=== PATIENT | female | born 1975 | race Caucasian/White ===

== ENCOUNTER 2020-05-08 14:05 | Emergency (ER) | payer MEDICARE, SELFPAY ==
[2020-05-08 14:20] VITALS: BP 119/73; PULSE 93; RESP 16; TEMP 36.8; O2SAT 100
--- NOTE | 2020-05-08 14:36 | ED.URI ---
HPI - URI/Sore Throat General Chief Complaint: Upper Respiratory Infection Stated Complaint: Sore Throat/Cough Time Seen by Provider: 05/08/20 14:37 Source: patient Mode of arrival: ambulatory Limitations: no limitations History of Present Illness HPI Narrative: Ashleigh Landaverde is a 45 yo female with no PMH comes to [facility] with complaints of sore throat since Saturday; difficulty swallowing, rates pain as a 6/10. Related Data Home Medications Medication Instructions Recorded Confirmed amitriptyline 50 mg PO HS 05/08/20 05/08/20 buprenorphine HCl [Belbuca] 150 mcg BUCCAL HS 05/08/20 05/08/20 buprenorphine HCl [Belbuca] 300 mcg BUCCAL DAILY 05/08/20 05/08/20 buspirone 5 mg PO DAILY 05/08/20 05/08/20 cholecalciferol (vitamin D3) 2,000 units PO DAILY 05/08/20 05/08/20 cyclobenzaprine 10 mg PO TID PRN 05/08/20 05/08/20 duloxetine 30 mg PO BID 05/08/20 05/08/20 gabapentin 300 mg PO DAILY 05/08/20 05/08/20 modafinil 200 mg PO DAILY 05/08/20 05/08/20 montelukast 10 mg PO HS 05/08/20 05/08/20 potassium chloride 10 meq PO EVERY OTHER DAY 05/08/20 05/08/20 sumatriptan succinate 100 mg PO .PRN 05/08/20 05/08/20 topiramate 100 mg PO TID 05/08/20 05/08/20 trazodone 25 - 50 mg PO HS 05/08/20 05/08/20 Allergies Allergy/AdvReac Type Severity Reaction Status Date / Time benzonatate Allergy Unknown Unknown Verified 05/08/20 14:34 pregabalin Allergy Unknown Unknown Verified 05/08/20 14:34 Review of Systems Review of Systems: Narrative: CONSTITUTIONAL: Denies fever, chills, sweats. EYES: Denies visual changes, redness, discharge. ENT: Denies rhinorrhea, congestion, has sore throat, no otalgia. CARDIOVASCULAR: Denies chest pain, palpitations, edema. RESPIRATORY: Denies dyspnea, wheezing, cough GASTROINTESTINAL: Denies abdominal pain, nausea, vomiting, diarrhea. GENITOURINARY: Denies dysuria, hematuria, abnormal discharge SKIN: Denies rash or itching. NEUROLOGIC: Denies numbness, or focal weakness. PSYCHIATRIC: Denies anxiety or depression. PMFSH Past Medical History Medical History Chronic pain HTN (hypertension) Migraine Family History Family History Other Diabetes mellitus High cholesterol Hypertension Social History Social History (Updated 05/08/20 @ 14:44 by Billie Garcia CNP) Smoking status: Never smoker Alcohol intake: never Comments At time of signature, I agree with nursing past medical, surgical, social and family history. There is no relevant family history pertinent to the presenting complaint. Exam Narrative: Exam Narrative: GENERAL: This is a well-nourished, well-developed patient, in mild distress. HEAD: normocephalic, atraumatic. EYES: Sclera clear/white. Vision is grossly intact. EARS: External ears normal, auditory canals clear and without drainage, TMs normal without perforation. Hearing grossly intact. NOSE: External nose normal without nasal discharge, nares without redness, no rhinorrhea. THROAT: Mucous membranes moist, posterior pharynx erythema, with clear exudate NECK: Neck supple, non-tender CARDIOVASCULAR: Regular rate and rhythm without murmurs, gallops, or rubs. RESPIRATORY: Clear to auscultation. Breath sounds equal bilaterally. No wheezes, rales, or rhonchi. GASTROINTESTINAL: Abdomen soft, non-tender, SKIN: warm, intact with no suspicious lesions or rash, good texture and turgor. NEURO: awake, alert, and oriented to person, place and time. There were no obvious focal neurologic abnormalities. Steady gait EXTREMITIES: Normal range of motion. BACK: Nontender without deformity Course Course Emergency Course: Patient presents with sore throat that started 24 hours ago that is worsened significantly today Strep Test was negative-patient states does not leave the house, does not think she is a Covid test. Started on prednisone and cepacol Follow-up with primary care
== END 2020-05-08 15:00 | disposition home or self-care (01) ==
PROVIDERS: Emergency Provider Nurse Practitioner; PCP Physician Assistant
DX: J02.9 Acute pharyngitis, unspecified (principal); I10 Essential (primary) hypertension
CPT/HCPCS: 87081; 87880; 99213; G0463

== ENCOUNTER 2021-03-14 16:07 | Emergency (ER) | payer MEDICARE, SELFPAY ==
--- NOTE | ~2021-03-14 | XR_ITS ---
EXAMINATION: XR wrist LT min 3V DATE: 03/14/2021 16:58 INDICATION: Shut door fell on the left wrist with generalized pain. TECHNIQUE: Posteroanterior, ulnar deviation, oblique, and lateral views of the left wrist were obtain ed. COMPARISON: none FINDINGS: Alignment is normal. No fracture. Joint spaces are normal. Soft tissues are unremarkable. IMPRESSION: 1. Negative left wrist radiographs. Reviewed, dictated and finalized at location A.
[2021-03-14 16:25] VITALS: BP 114/67; PULSE 96; RESP 16; TEMP 36.8; O2SAT 100
[2021-03-14 16:45] VITALS: BP 114/67; PULSE 96; RESP 16; TEMP 36.8; O2SAT 100
--- NOTE | 2021-03-14 17:04 | ED.UPPEXIN ---
HPI - Extremity Injury (Upper) General Chief Complaint: Extremity Injury, Upper Stated Complaint: Hand Injury Time Seen by Provider: 03/14/21 17:04 Source: patient and RN notes reviewed Mode of arrival: ambulatory Limitations: no limitations History of Present Illness HPI narrative: 45-year-old female presents concern for left wrist pain, decreased range of motion in the digits. Reports yesterday a [employer] shed door fell on her wrist causing some bruising and redness. Reports today while trying to do laundry and activities of daily living she noticed decreased range of motion of the digits. MD complaint: injury to: left and wrist Related Data Home Medications Medication Instructions Recorded Confirmed amitriptyline 50 mg PO HS 05/08/20 03/14/21 buprenorphine HCl [Belbuca] 150 mcg BUCCAL HS 05/08/20 03/14/21 buprenorphine HCl [Belbuca] 300 mcg BUCCAL DAILY 05/08/20 03/14/21 cholecalciferol (vitamin D3) 2,000 units PO DAILY 05/08/20 05/08/20 cyclobenzaprine 10 mg PO TID PRN 05/08/20 03/14/21 duloxetine 30 mg PO BID 05/08/20 03/14/21 gabapentin 300 mg PO DAILY 05/08/20 03/14/21 modafinil 200 mg PO DAILY 05/08/20 03/14/21 montelukast 10 mg PO HS 05/08/20 03/14/21 topiramate 100 mg PO TID 05/08/20 03/14/21 trazodone 25 - 50 mg PO HS 05/08/20 03/14/21 buspirone 10 mg PO DAILY 03/14/21 03/14/21 famotidine 40 mg PO DAILY 03/14/21 03/14/21 Allergies Allergy/AdvReac Type Severity Reaction Status Date / Time benzonatate Allergy Unknown Unknown Verified 05/08/20 14:34 pregabalin Allergy Unknown Unknown Verified 05/08/20 14:34 Review of Systems Review of Systems: CONSTITUTIONAL: Denies malaise, chills, sweats, or fever. SKIN: Reports bruising, redness to the left wrist MUSCULOSKELETAL: Reports left wrist pain and decreased range of motion NEUROLOGIC: Denies numbness, weakness All systems reviewed & are unremarkable except as noted in HPI and below PMFSH Past Medical History Medical History Chronic pain HTN (hypertension) Migraine Family History Family History Other Diabetes mellitus High cholesterol Hypertension Social History Social History (Updated 05/08/20 @ 14:44 by Billie Garcia CNP) Smoking status: Never smoker Alcohol intake: never Comments At time of signature, agree with nursing past medical, surgical, social and family history. There is no relevant family history pertinent to the presenting complaint Exam Narrative: GENERAL: Well-appearing, well-nourished, and in no acute distress. HEAD: Normocephalic, atraumatic. EYES: PERRLA, conjunctivae clear NECK: Supple. CHEST: Speaks in full sentences. No respiratory distress. HEART: Regular rate and rhythm. Normal and equal peripheral pulses. EXTREMITIES: Left wrist, hand, digits have normal strength and sensation. Limited range of motion noted to digits. No edema, one small area of ecchymosis. 5/5 strength with digit flexion and extension. Normal sensation with sensitivity to light touch and pain. No point tenderness. No open wounds, no skin tenting, no devitalized tissue or atrophy, no trophic changes, no obvious deformity, alignment normal, nearby joints and structures intact. Distal pulses palpable and equal bilaterally, skin warm, dry, pink. Capillary refill less than 3 seconds. Unable to make okay sign or thumbs up, no scissoring, normal thumb opposition SKIN: Warm, dry, no rash. NEURO: Alert and oriented x3. PSYCH: Normal mood and affect Course Course Emergency Course: Patient is aware of diagnosis, understands and agrees to treatment plan. Anticipatory guidance given. Patient agrees to follow-up as directed and is aware of reasons to seek care at the emergency department. Portions of this record may have been created with voice recognition software Vital Signs Vital signs: Vital Signs Temperature 98.2 F 03/14/21 16:25 Puls
== END 2021-03-14 17:18 | disposition home or self-care (01) ==
PROVIDERS: Emergency Provider Nurse Practitioner; PCP Physician Assistant
DX: S63.502A Unspecified sprain of left wrist, initial encounter (principal); S66.912A Strain of unspecified muscle, fascia and tendon at wrist and hand level, left hand, initial encounter; W20.8XXA Other cause of strike by thrown, projected or falling object, initial encounter; I10 Essential (primary) hypertension
CPT/HCPCS: 73110; 99213; G0463

== ENCOUNTER 2021-07-28 11:03 | Emergency (ER) | payer OTHER, MEDICARE, SELFPAY ==
[2021-07-28 11:13] VITALS: BP 126/107; PULSE 108; RESP 14; TEMP 36.6; O2SAT 100
--- NOTE | 2021-07-28 11:23 | ED.FEMALEGU ---
HPI - Female Genitourinary General Chief complaint: CPHT Stated complaint: Swollen in Vaginal area Time Seen by Provider: 07/28/21 11:50 Source: patient and RN notes reviewed Mode of arrival: ambulatory Limitations: no limitations History of Present Illness HPI Narrative: 46-year-old female presented for complaint of area of painful swelling to vagina, onset today. She denies any associated dysuria, hematuria, itching, vaginal discharge or concern for STD. She states she has no history of HSV or HPV. States it feels like a painful knot in the front of the vagina. Endorses recent treatment for back pain and dehydration. Related Data Home Medications Medication Instructions Recorded Confirmed amitriptyline 50 mg PO HS 05/08/20 07/28/21 buprenorphine HCl [Belbuca] 150 mcg BUCCAL HS 05/08/20 07/28/21 buprenorphine HCl [Belbuca] 300 mcg BUCCAL DAILY 05/08/20 07/28/21 cholecalciferol (vitamin D3) 2,000 units PO DAILY 05/08/20 07/28/21 cyclobenzaprine 10 mg PO TID PRN 05/08/20 07/28/21 duloxetine 30 mg PO BID 05/08/20 07/28/21 gabapentin 300 mg PO DAILY 05/08/20 07/28/21 modafinil 200 mg PO DAILY 05/08/20 07/28/21 montelukast 10 mg PO HS 05/08/20 07/28/21 topiramate 100 mg PO TID 05/08/20 07/28/21 trazodone 25 - 50 mg PO HS 05/08/20 07/28/21 buspirone 10 mg PO DAILY 03/14/21 07/28/21 famotidine 40 mg PO DAILY 03/14/21 07/28/21 Allergies Allergy/AdvReac Type Severity Reaction Status Date / Time benzonatate Allergy Unknown Unknown Verified 07/28/21 11:31 pregabalin Allergy Unknown Unknown Verified 07/28/21 11:31 Review of Systems Review of Systems: CONSTITUTIONAL: Denies body aches, fever, chills, or sweats. CARDIOVASCULAR: Denies chest pain, palpitations, or edema. RESPIRATORY: Denies cough or dyspnea. GASTROINTESTINAL: Denies abdominal pain, nausea, vomiting, or diarrhea. GENITOURINARY: Reports pain and swelling to vagina denies dysuria, frequency, urgency, hematuria, flank pain SKIN: Denies rash, itching, or wounds. MUSCULOSKELETAL: Denies back pain or myalgia. [facility] Past Medical History Medical History Chronic pain HTN (hypertension) Migraine Family History Family History Other Diabetes mellitus High cholesterol Hypertension Social History Social History Smoking status: Never smoker Alcohol intake: never Comments At time of signature, I have reviewed and agree with nursing past medical, surgical, social and family history unless otherwise noted. Please see nursing chart for further information. There is no relevant family history pertinent to the presenting complaint Exam Narrative: GENERAL: Well-appearing and in no acute distress. HEAD: Normocephalic EYES: EOMI. . ENT: Mucous membranes pink and moist. NECK: Normal AROM. Supple. CHEST: No respiratory distress. Clear to auscultation. HEART: Regular rate and rhythm. ABDOMEN: Soft, nontender, nondistended, normal active bowel sounds. No CVA tenderness : clitoral howard with tender cyst, approx 1cm diameter, mild localized swelling, no drainage or lesions, no drainage or surrounding induration/erythema MUSCULOSKELETAL: No bony tenderness. SKIN: Warm, dry, no rash. NEURO: No focal deficits. Alert and oriented x3. Gait steady. PSYCH: Normal affect. No signs of depression or anxiety. Course Course Emergency Course: Call placed to pt's OBGyn [id number] at [facility], was told she has not been seen since 2019 and that provider is no longer with the company. [employer] technician Obgyn Dr Marcus will be provided for pt to f/u. v/u. Patient is aware of diagnosis, understands and agrees to treatment plan. Anticipatory guidance given. Patient agrees to follow-up as directed and is aware of reasons to seek care at the emergency department. Portions of this record may have been created with v
== END 2021-07-28 13:08 | disposition home or self-care (01) ==
PROVIDERS: Emergency Provider Nurse Practitioner Family; PCP Physician Assistant
DX: N89.8 Other specified noninflammatory disorders of vagina (principal); I10 Essential (primary) hypertension
CPT/HCPCS: 99213; G0463

== ENCOUNTER 2024-09-02 08:38 | Outpatient (CLI) | payer OTHER, MEDICARE, SELFPAY ==
--- NOTE | ~2024-09-02 | XR_ITS ---
EXAM/ PROCEDURE: XR shoulder LT min 2V - 09/02/2024 09:08 CDT HISTORY: 49 years old Female with LEFT SHOULDER PAIN COMPARISON: None available TECHNIQUE: Four view(s) FINDINGS/ IMPRESSION: There are no fractures or dislocations.Joint spaces are within normal limits Reviewed, dictated and finalized at location A.
== END 2024-09-02 08:39 | disposition home or self-care (01) ==
PROVIDERS: PCP Nurse Practitioner Family; Visit Provider Nurse Practitioner Family
DX: M25.512 Pain in left shoulder (principal)
CPT/HCPCS: 73030

== ENCOUNTER 2025-02-15 00:13 | Day surgery (SDC) | payer OTHER, MEDICARE, SELFPAY ==
[2025-02-02 10:03] VITALS: BMI 30.2
--- OUTSIDE RECORDS SUMMARY | 2025-02-15 00:16 | XMS_ITS | Encounter Summary ---
Author Organization [facility] Healthcare Address [address] [place] [id number] Care Team Providers Care Professor/Nurse Anesthetist Name Role Phone Amrit Rendon Primary Care Provider [phone] Encounter Details Date Type Department Care Team (Late st Contact Info) Description 02/02/2020 Telephone [facility] - Imaging [address] [place] [address] Transcribed Order, Provider Social History Tobacco Use Types Packs/Day Years Used Date Smoking Tobacco: Never Smokeless Tobacco: Never Alcohol Use Standard Drinks/Week Comments No 0 (1 standard drink = 0.6 oz pur e alcohol) Comments No Sex and Gender Information Value Date Recorded Sex Assigned at Not on file 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
--- OUTSIDE RECORDS SUMMARY | 2025-02-15 00:16 | XMS_ITS | Clinical Summary ---
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 Role Phone Amrit Rendon Primary Care Provider [phone] Allergies Active Allergy Reactions Criticality Noted Date Comments Benzonatate Syncope Reaction: Syncope, Pregabalin Other (See comments) Reaction: joint issues, , Medications DULoxetine DR (CYMBALTA) 30 mg capsule take 1 capsule by oral route 2 times every day 0 0 7 Active gabapentin (NEURONTIN) 300 mg capsule take 1 capsule by oral route 3 times every day 0 0 6 Active BELBUCA 150 mcg filmIndications :severe chronic pain requiring long-term opioid treatment Apply 1 each (150 mcg total) to cheek 2 (two) times a day 1 9 Active topiramate (TOPAMAX) 100 mg tablet Take 1 tab TID (total 300mg Qd). This for both migraine and nerve pain suggested by Pain team. 9 Active cyclobenzaprine (FLEXERIL) 10 mg tabletIndicatio ns:Muscle Spasm Take 1 tablet (10 mg total) by mouth 2 (two) times a day as needed for muscle spasms 6 Active potassium chloride ER 10 mEq CR tabletIndicatio ns:hypokalemia prevention Take 1 tablet/capsule (10 mEq total) by mouth every other day 4 Active busPIRone (BUSPAR) 10 mg tabletIndicatio ns:Generalized Anxiety Disorder Take 1 tablet (10 mg total) by mouth 2 (two) times a day 4 Active ferrous sulfate (FeroSuL) 325 mg (65 mg of elemental iron) tabletIndicatio ns:Iron Deficiency Anemia Take 1 tablet (325 mg total) by mouth nightly Active cholecalciferol (VITAMIN D-3) 2000 unit capsuleIndicati ons:Vitamin D Deficiency Take 1 capsule (2,000 Units total) by mouth every morning Active onabotulinumtox in A (BOTOX) 200 unit recon solnIndications :Migraines Injections every 3 months- Active magnesium oxide (MAG-OX) 250 mg (150.8 mg elemental) tabletIndicatio ns:hypomagnesem ia Take 1 tablet (250 mg total) by mouth every other day Active SUMAtriptan (IMITREX) 100 mg tablet TAKE 1 TABLET BY MOUTH EVERY 2 HOURS NEEDED SOON YOU FEEL A HEADACHE IS COMING. NO MORE THAN 2 TABLETS IN 24 HOURS. 9 tablet 11 4 Active mupirocin (BACTROBAN) 2 % ointment Apply to each nostril 2 (two) times a day Apply a pea-sized amount into each nostril twice a day for 1 month 22 g 5 Active Additional Information Patient not taking.Reported on 01/15/2025 atorvastatin (LIPITOR) 20 mg tablet Take 1 tablet (20 mg total) by mouth daily for 90 days [address] (VOLTAREN) 75 mg EC tablet Take 1 tablet (75 mg total) by mouth 5 Active sodium chloride-aloe vera gel Apply topically Acti ve amitriptyline (ELAVIL) 25 mg tablet TAKE 2 TABLETS BY MOUTH NIGHTLY 180 tablet 3 5 Active Active Problems Problem Noted Date Diagnosed Date Nasal septal perforation 03/17/2024 Perforation of nasal septum 10/16/2023 Assessment & Plan (12/25/2023 9:06 AM CDT): Referral to Rhinology for Nasal septum perforation Continue Nasal saline as often as possible, humidifier at bedtime Assessment & Plan (10/16/2023 12:30 PM CDT): Nasal saline spray (Simply saline, Little Remedies, [place], [place]) 2 second sprays or 2 squeezes into each nostril while looking down over the sink, sniff in and spit out rather than blow nose after use. Doxycycline twice daily for 2 weeks Follow up in 6-8 weeks to recheck, consider biopsy if not improving Wait at least one week before starting BiPap Chronic maxillary sinusitis 10/16/2023 Assessment & Plan (10/16/2023 12:30 PM CDT): Nasal saline spray (Simply saline, Little Remedies, [place], [place]) 2 second sprays or 2 squeezes into each nostril while looking down over the sink, sniff in and spit out rather than blow nose after use. Doxycycline twice daily for 2 weeks Follow up in 6-8 weeks to recheck, consider biopsy if not improving Wait at least one week before starting BiPap Colon cancer screening 06/15/2022 Assessment & Plan (03/19/2023 8:13 AM CDT): Colonoscopy from 2016 showed small perianal tear and otherwise normal. Repeat colonoscopy 2025 Assessment & Plan (09/14/2022 9:04 AM CDT): Colonoscopy from 2016 showed small perianal tear and otherwise normal. Repeat colonoscopy 2025 Assessment & Plan (06/15/2022 9:01 AM MAINTENANCE CONTROLLER): Colonoscopy from 2016 showed small perianal tear and otherwise normal. Repeat colonoscopy 2025 Cellulitis of nasal tip 09/02/2020 Assessment & Plan (09/02/2020 11:10 AM CDT): Continue the BiPap with humidifier Bactroban ointment into nose twice daily Avoid nose blowing, sniff in and spit out Elocon Continue nasal saline 3 or more times per day Pepcid 40 mg at bedtime for sore throat Laryngopharyngeal reflux (LPR) 09/02/2020 Assessment & Plan (09/02/2020 11:11 AM CDT): Continue the BiPap with humidifier Bactroban ointment into nose twice daily Avoid nose blowing, sniff in and spit out Elocon Continue nasal saline 3 or more times per day Pepcid 40 mg at bedtime for sore throat, call if no improvement in 8 weeks Allergic rhinitis 11/30/2019 Assessment & Plan (11/30/2019 8:55 AM CDT): Switch to Cetirizine 10 mg (Zyrtec) daily without the decongestant Continue Singulair Avoid ear cleaning techniques Avoid water to ears Vasovagal syncope 11/30/2019 Assessment & Plan (11/30/2019 11:05 AM CDT): Follow up with PCP as scheduled this week Chronic eczematous otitis externa of both ears 0 11/30/2019 Assessment & Plan (09/02/2020 11:12 AM CDT): Elocon to outer portion of ears twice daily for 2 weeks and then as needed Avoid ear cleaning techniques Avoid water to ears Assessment & Plan (11/30/2019 11:06 AM CDT): Vinegar and water solution discussed and Handout provided Epistaxis 11/16/2019 Assessment & Plan (10/16/2023 12:30 PM CDT): Nasal saline spray (Simply saline, Little Remedies, [place], [place]) 2 second sprays or 2 squeezes into each nostril while looking down over the sink, sniff in and spit out rather than blow nose after use. Doxycycline twice daily for 2 weeks Follow up in 6-8 weeks to recheck, consider biopsy if not improving Wait at least one week before starting BiPap Assessment & Plan (11/30/2019 8:55 AM CDT): Switch to Cetirizine 10 mg (Zyrtec) daily without the decongestant Continue Singulair Avoid ear cleaning techniques Avoid water to ears Assessment & Plan (11/16/2019 9:59 AM CDT): Nasal saline spray (Simply saline, Little Remedies, [place], [place]) 2 second sprays or 2 squeezes into each nostril while looking down over the sink, do not need to sniff in. Followed by Bactroban ointment into each nostril then massage outer portion of nose to distribute twice daily for 10 days Follow up in 2 weeks Avoid nose blowing Nasal septal deviation 04/16/2019 Allergy to environmental factors 02/04/2019 Moderate recurrent major depression 04/15/2018 Complex sleep apnea syndrome 06/21/2017 Obesity (BMI 30.0-34.9) 06/21/2017 Hypersomnia with sleep apnea 06/21/2017 Chronic constipation 04/30/2017 Assessment & Plan (03/19/2023 8:13 AM CDT): 2/2 type 4 dyssynergia. Chronic better controlled now with pelvic floor PT. Takes magnesium citrate gummies as needed if no BM for 1-2 days. Plan Continue current management with pelvic floor exercises and magnesium gummies as needed Assessment & Plan (09/14/2022 9:06 AM CDT): 2/2 type 4 dyssynergia. Chronic better controlled now with pelvic floor PT, still has two more sessions left. Having 4-5 BMs a week. Takes magnesium gummies as needed if no BM for 1-2 days. Hematochezia resolved. Some mild LLQ abdominal pain better with massage. Continue current management with pelvic floor exercises and magnesium gummies as needed Assessment & Plan (06/15/2022 8:58 AM MAINTENANCE CONTROLLER): Chronic and not controlled. Associated with hematochezia. Has bowel movements 1 to 2 times a week on MiraLax 1 capful daily and magnesium citrate as needed. Has previously tried fiber and stool softener with no relief. Anorectal manometry study from 02/2022 showed type 4 dyssynergic defecation. Labs reviewed from 07/2021- showed normal CBC and CMP at that time TSH was normal from 2019. Colonoscopy from 2016 for intermittent hematochezia and chronic constipation showed small perianal tear and otherwise normal. Will start Amitiza 24 mcg twice daily given inadequate response to upog-pft-cwesqyt laxative medications and referred to pelvic floor physical therapy for dyssynergic defecation. Assessment & Plan (02/12/2022 9:00 AM CDT): Chronic and not controlled. Associated with hematochezia. Has bowel movement every 7-10 days, refractory to lorn-qhc-qvfsidg laxative medications. Rectal exam today showed findings suggestive of pelvic floor dyssynergia. No fissures or hemorrhoids noted on exam. Labs reviewed from 07/2021-showed normal CBC and CMP at that time TSH was normal from 2019. Colonoscopy from 2016 for intermittent hematochezia and chronic constipation showed small perianal tear and otherwise normal. Will go ahead repeat CBC in the setting of hematochezia will get TSH CRP and ESR as well. Will start Amitiza 24 mcg twice daily given inadequate response to eobc-lwc-wbzozkl laxative medications and also suspicion for IBS/opioid induced constipation. refer for anorectal manometry study for possible pelvic floor dyssynergia. If positive will benefit from pelvic floor physical therapy and biofeedback Somatic symptom disorder, pe rsistent, severe, with predominant pain 04/26/2017 Narcolepsy without cataplexy(347.00) 02/11/2017 Hypertriglyceridemia 11/29/2016 Chronic migraine without aura 07/30/2016 Overview (10/19/2016): Chronic migraine without aura Chronic back pain 07/16/2016 Generalized anxiety disorder 07/16/2016 Headache 07/16/2016 Benign essential hypertension 11/02/2015 Overview (08/30/2016): Benign essential hypertension Resolved Problems Problem Noted Date Diagnosed Date Resolved Date Hematochezia 02/12/2022 09/14/2022 Assessment & Plan (06/15/2022 9:00 AM MAINTENANCE CONTROLLER): Chronic uncontrolled. Painless and associated with straining concerning for hemorrhoidal bleeding. We will work on managing constipation with Amitiza and pelvic floor training Assessment & Plan (02/12/2022 8:56 AM CDT): Chronic and intermittent with recent worsening over the last 4-6 month. Suspect could be related to straining from significant constipation and hard stools. No fissure, tear, hemorrhoids noted on rectal exam. CBC unremarkable from 07/2021. Colonoscopy from 2016 for intermittent hematochezia showed small perianal tear and otherwise normal. Given recent worsening will go ahead and repeat a CBC will also check TSH and inflammatory markers as well. Encounters Date Type Department Care Team Description 02/09/2025 Telephone [facility] [address] [place] [address] Billie Huizar, 02/02/2025 Results Follow-Up [facility] [address] [place] [address] [address] [place] [phone] Lee Ann Sal MD Drugs of Abuse Screen, Urine without Confirmation, ANCA 01/20/2025 12:55 PM CDT Lab [facility] [address] [place] [address] Nasal septal perforation 01/15/2025 1:25 PM CDT Lab [facility] [address] [place] [address] 01/15/2025 12:55 PM CDT Lab [facility] [address] [place] [address] Perforation of nasal septum 01/15/2025 11:40 AM CDT Office Visit [facility] [address] [place] [address] [phone] Lee Ann Sal MD Nasal septal perforation (Primary Dx); Epistaxis; Other specified disorders of nose and nasal sinuses 01/15/2025 Telephone [facility] Ot[facility] [address] [place] [address] Billie Huizar, 12/11/2024 10:45 AM CDT Procedure visit [facility] [address] [facility] [address] [place] [phone] Marino Chen MD Chronic migraine without aura with status migrainosus, not intractable from Last 3 Months Immunizations Immunization Administration Dates Next Due Influenza, Quadrivalent, Spl it, Intramuscular 03/31/2018,04/15/2017,03/05/2016,03/10,2014 Influenza, Quadrivalent, Spl it, Preservative Free, Intramuscular 05/19/2019 Influenza, Trivalent, IM (MDV) 04/13/2014,2013 Tdap 09/21/2015 Surgical History Surgery Date Site/Laterality Comments CERVICAL CONE BIOPSY 05/27/1998 - 05/26/1999 ANKLE SURGERY Left left ankle surgery NERVE BIOPSY sural nerve biopsy FOOT SURGERY Left L foot pain: Foot surgery TUBAL LIGATION 05/27/2005 - 05/26/2006 Bilateral BREAST BIOPSY 05/27/1998 - 05/26/1999 Left Benign NASAL SEPTUM SURGERY 04/16/[address] Dillon. 04/16/2019 SPINAL CORD STIMULATOR IMPLANT 07/19/2017 Medical History Medical History Date Comments Hx Other Medical Abnormal pap sm ear Hx Other Medical L foot pain Hx Other Medical Staph in LLE Headache, tension-type Headache, tension Migraine headache Headache, migr val Hypertension Hypertension Sleep apnea CPAP Chronic back pain Hematochezia 02/12/2022 Family History Medical History Relation Name Comments Heart disease Maternal Grandfather Heart disease; Breast cancer Maternal Grandmother Cancer , breast; Glaucoma Maternal Grandmother Glaucom a; COPD Mother COPD; Cervical cancer Mother Coronary artery disease Mother Anibal nary artery disease, premature; Diabetes Mother Diabetes mellit us; Fibromyalgia Mother Fibromyalgia; Hypertension Mother Hypertension; Lupus Mother Lupus erythemat osus; Other Mother fatty liver dis ease; Breast cancer Mother's Sister 1 Cancer, b reast; Ovarian cancer Mother's Sister 2 Anesthesia problems Neg Hx Relation Name Status Comments Maternal Grandfather Maternal Grandmother Alive Mother Mother's Sister 1 Alive Mother's Sister 2 Social History Tobacco Use Types Packs/Day Years Used Date Smoking Tobacco: Never Passive Smoke Exposure: Never Smokeless Tobacco: Never Tobacco Cessation:Counseling Given: Not Answered Alcohol Use Standard Drinks/Week Comments No 0 (1 standard drink = 0.6 oz pur e alcohol) AUDIT-C Answer Date Recorded Q1: How often do you have a drink containing alcohol? Never 04/09/2024 Q2: How many drinks containi ng alcohol do you have on a typical day when you are drinking? Patient does not drink Q3: How often do you have si x or more drinks on one occasion? Never 04/09/2024 Personal Safety Answer Date Recorded Have you ever been in or are you currently in a harmful physical or emotional relationship or is someone making you feel afraid or unsafe? Denies 04/09/2024 Comments No Sex and Gender Information Value Date Recorded Sex Assigned at Not on file Legal Sex Female 7:54 AM MAINTENANCE CONTROLLER Gender Identity Not on file Sexual Orientation Not on file Obstetrics History Para Term AB IAB SAB Ectopic Multiple Livin g Live Births 2 2 2 2 2 Date Outcome GA Total Labor Labor/2nd/3rd Weight Sex Type Anes PTL Elvira A1 A5 Name Clin 1994 Term 40w1 d 3.062 kg (6 lb 12 oz) F Living 2005 Term 41w0 d 3.544 kg (7 lb 13 oz) M Vag-S pont Living Last Filed Vital Signs Vital Sign Reading Time Taken Comments Blood Pressure 113/69 12/11/2024 10:51 AM CDT Pulse 81 12/11/2024 10:51 AM CDT Temperature 36.2 C (97.2 F) 04/09/2024 10:35 AM MAINTENANCE CONTROLLER Respiratory Rate 16 04/09/2024 10:35 AM MAINTENANCE CONTROLLER Oxygen Saturation 98% 12/11/2024 10:51 AM CDT Inhaled Oxygen Concentration - - Weight 74.8 kg (165 lb) 01/15/2025 11:55 AM CDT Height 157.5 cm (5' 2) 01/15/2025 11:55 AM CDT Body Mass Index 30.18 01/15/2025 11:55 AM CDT Plan of Treatment Health Maintenance Due Date Last Done Comments Depression Screening 1977 Hepatitis C Screening 1977 Hepatitis B Screening 1995 Regular Well Visit/Exam 18-64 1995 Cervical Cancer Screening 08/24/2023 08/23/2022 Breast Cancer Screening-Mammogram 01/24/2025 01/25/2024, 12/08/2022, 09/25/2021, Additional history exists Influenza Vaccine (#1) 2025 , 02/24/2022, 05/19/2019, Additional history exists Colon Cancer Screening-Colonoscopy 07/07/2025 07/07/2015, 07/07/2015 DTaP/Tdap/Td Vaccine (2 - Td or Tdap) 09/20/2025 09/21/2015 Pneumococcal vaccine <65 Aged Out No longer eligible based on patient's age to complete this topic Medical Devices Implanted Type Area Home Sales Consultant Device Identifier Shelf Expiration Date Model / Serial / Lot [employer] Biodesign 2.5x2.5cm Cranial Dura Graft Soft Tissue Porcine [id number] - [id number] Implanted:Qty: 1 on 04/09/2024 by Lee Ann Sal MD at [facility] Graft N/A: Nose [employer] 08/04/2024 [id number] / / [id number] Kit Neurostimulator Octrode L60 Cm Percutaneous 8 Electrode Lead - [id number] - [id number] Implanted:Qty: 1 on 07/19/2017 by Noel Reyes MD at [facility] [employer] 01/15/2019 [id number] / [id number] / Description:This lead is MRI -compatible. Placement at T7-T8 makes the system compatible for an MRI. See the generator information for conditions. Kit Neurostimulator Octrode L60 Cm Percutaneous 8 Electrode Lead - [id number] - [id number] Implanted:Qty: 1 on 07/19/2017 by Noel Reyes MD at [facility] [employer] 03/19/2019 [id number] / [id number] / Description:This lead is MRI -compatible. Placement at T7-T8 makes the system compatible for an MRI. See the generator information for conditions. [place] Lead Rouse-Lock - [id number] Implanted:Qty: 2 on 07/19/2017 by Noel Reyes MD at [facility] [employer] 03/14/2019 [id number] / / [id number] Description:https://[email or web address] Algisys.Apixio/Search- Form?re=[place]&cc=IT&ln=EN&ct=&vrd=1230&ip p=10 According to 2018 T-spine xrays the lead tips are at the level of T6 which makes the system MRI unsafe. mxc Generator Neurostimulator Proclaim Elite Thk.53 In L2.63 In X H1.98 In 2.1 Oz 7 Ipg Implantable Recharge Free Chronic Pain - Savnb11.1 - [id number] Implanted:Qty: 1 on 07/19/2017 by Noel Reyes MD at [facility] 05/01/2019 [id number] / AVNB11.1 / Description:https://manuals. docplanner/Search- Form?re=[place]&cc=IT&ln=EN&ct=&qdm=0306&ip p=10 According to 2018 T-spine xrays the lead tips are at the level of T6 which makes the system MRI unsafe. [facility] Procedures Procedure Name Priority Date/Time Associated Diagnosis Comments ANTI-NEUTROPHILIC CYTOPLASMIC ANTIBODY Routine 01/20/2025 1:05 PM CDT DRUGS OF ABUSE SCREEN, URINE WITHOUT CONFIRMATION STAT 01/20/2025 1:05 PM CDT Nasal septal perforation SCREENING MAMMOGRAM BILATERAL W ROBERT Schedule Routine, Read Routine (OP Routine) 01/25/2024 12:27 PM CDT Screening mammogram, encounter for PAP AND HIGH RISK HPV, REFLEX TO GENOTYPING Routine 08/23/2022 8:42 AM CDT Screening for malignant neoplasm of the cervix COLONOSCOPY 07/07/2015 12:00 AM MAINTENANCE CONTROLLER from Last 3 Months or Most Recently Relevant to Health Maintenance Results * (ABNORMAL) Drugs of Abuse Screen, Urine without Confirmation (01/20/2025 1:05 PM CDT) Amphetamine, ur Screen Positive, presumptive (A) CutOff 500ng/mL [facility] Comment: Interpretive Data - Amphetamines: Samples containing greater than 500 ng/mL d-methamphetamine or other cross-reacting amphetamine compounds are reported as positive. Amphetamine immunoassays are subject to significant false positive rates due to cross-reactivity of non-amphetamine drugs. Confirmatory testing required for definitive results. Current Interpretive Data was last reviewed 2022. Barbiturates, ur Not Detected CutOff 200ng/mL [facility] Comment: Interpretive Data - Barbiturates: Samples containing greater than 200 ng/mL secobarbital or other cross-reacting barbiturate compounds are reported as positive. False positive and false negative results are possible. Confirmatory testing required for definitive results. Current Interpretive Data was last reviewed 2022. Benzodiazepines, ur Not Detected CutOff 100ng/mL [facility] ([place]) Comment: Interpretive Data - Benzodiazepines: Samples containing greater than 100 ng/mL nordiazepam or other cross-reacting compounds are reported as positive. False positive and false negative results are possible. Confirmatory testing required for definitive results. Current Interpretive Data was last reviewed 2022. Cannabinoids, ur Not Detected CutOff 50 ng/mL [facility] ([place]) Comment: Interpretive Data - Cannabinoids: Samples containing greater than 50 ng/mL delta-9 THC -COOH or other cross- reacting compounds are reported as positive. False positive and false negative results are possible. Confirmatory testing required for definitive results. Current Interpretive Data was last reviewed 2022. Cocaine, ur Not Detected CutOff 150ng/mL [facility] ([place]) Comment: Interpretive Data - Cocaine: Samples containing greater than 150 ng/mL benzoylecgonine or other cross- reacting compounds are reported as positive. False positive and false negative results are possible. Confirmatory testing required for definitive results. Current Interpretive Data was last reviewed 2022. Fentanyl, Ur Not Detected CutOff 5 ng/mL [facility] ([place]) Comment: Interpretive Data - Fentanyl: Samples containing greater than 5 ng/mL norfentanyl, fentanyl, or other cross-reacting fentanyl compounds are reported as positive. False positive and false negative results are possible. Confirmatory testing required for definitive results. Current Interpretive Data was last reviewed 2023. Methadone, ur Not Detected CutOff 300ng/mL [facility]) Comment: Interpretive Data - Methadone: Samples containing greater than 300 ng/mL d,l-methadone or other cross-reacting compounds are reported as positive. False positive and false negative results are possible. Confirmatory testing required for definitive results. Current Interpretive Data was last reviewed 2022. Opiates, ur Not Detected CutOff 300ng/mL [facility]) Comment: Interpretive Data - Opiates: Samples containing greater than 300 ng/mL morphine or other cross-reacting compounds are reported as positive. False positive and false negative results are possible. Confirmatory testing required for definitive results. Current Interpretive Data was last reviewed 2022. Oxycodone, ur NOT DETECTED CutOff 100ng/mL [facility] Comment: Interpretive Data - Oxycodone: Samples containing greater than 100 ng/mL oxycodone or other cross-reacting compounds are reported as positive. False positive and false negative results are possible. Confirmatory testing required for definitive results. Current Interpretive Data was last reviewed 2022. Phencyclidine, ur Not Detected CutOff 25 ng/mL [facility] Comment: Interpretive Data - Phencyclidine: Samples containing greater than 25 ng/mL phencyclidine or other cross-reacting compounds are reported as positive. False positive and false negative results are possible. Confirmatory testing required for definitive results. Current Interpretive Data was last reviewed 2022. Urine Creatinine 276 mg/dL [facility] ([place]) Comment: Interpretive Data Urine Creatinine: < 10 mg/dL is extremely dilute = or > 10 but < 20 mg/dL is dilute = or > 20 mg/dL is normal Current Interpretive Data was last revised on 2017. Urine 01/20/2025 1:05 PM CDT 01/20/2025 2:28 PM CDT Narrative [facility] - 01/20/2025 3:18 PM CDT Drug of Abuse screening is performed by immunoassay for medical purposes only. This is not to be used for Pain Management purposes. Lee Ann Sal MD LAB URINE ORDERABLES Final Result [facility] [address] [facility] Department [place] [address] * ANCA (01/20/2025 1:05 PM CDT) C-ANCA Negative Negative [facility] P-ANCA Negative Negative [facility] ([place]) Comment: Negative for cANCA and pANCA patterns by immunofluorescence. ADDITIONAL INFORMATION This test was developed and its performance characteristics determined by [facility] in a manner consistent with CLIA requirements. This test has not been cleared or approved by the U.S. Food and Drug Administration. Test Performed by: [facility] - [facility] [address] [place] [address] Chief Design Engineer: Daphne Rudolph Ph.D.; CLIA# [id number] Blood 01/20/2025 1:05 PM CDT 01/20/2025 1:32 PM CDT Lee Ann Sal MD LAB BLOOD ORDERABLES Final Result FIDENCIO CAMARILLO ([place]) 1 [facility] Department [place] [address] [place] [facility] * Screening Mammogram Bilateral W Robert (01/25/2024 12:27 PM CDT) Anatomical Region Laterality Modality Breast Bilateral Mammography 01/28/2024 11:3 7 AM CDT Impressions 01/28/2024 11:37 AM CDT There is no mammographic evidence of malignancy. A 1 year screening mammogram is recommended. BI-RADS: 1 - Negative. The patient has been or will be contacted. The patient will be entered into a reminder system with a target due date of 1 year for her next mammogram. Electronically signed by: CIPRIANO Gongora 01/28/2024 11:37 AM CDT EXAMINATION: SCREENING MAMMOGRAM BILATERAL W ROBERT ORDERING HEALTHCARE PROVIDER: SELF SCREENING MAMMOGRAM HISTORY: Routine screening mammography.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
--- OUTSIDE RECORDS SUMMARY | 2025-02-15 00:16 | XMS_ITS | Clinical Summary ---
Author Organization [facility] Address [address] [place] [id number] Phone Care Team Providers Care Voucher Clerk Name Role Phone Arsen Colin MD Unavailable [phone] Billie Rdz APRN, GUSSET MAKER Primary Care Provider [phone] Allergies Active Allergy Reactions Criticality Noted Date Comments Benzonatate Vomiting 03/18/2019 Pregabalin Other (see Comments) Reaction: joint issues, , Other reaction(s): Myalgias (muscle pain) Medications Cholecalciferol (D 1000) 1000 UNIT Capsule Take 2,000 Units by mouth daily. 01/25/20 16 Active cyclobenzaprine (FLEXERIL) 10 MG Tablet Take 10 mg by mouth 2 times daily. 09/21/19 16 Active DULoxetine (CYMBALTA) [address] Particles take 1 capsule by oral route 2 times every day 07/31/19 17 Active gabapentin (NEURONTIN) 300 MG Capsule Take 300 mg by mouth nightly. 09/21/19 16 Active hydroCHLOROthiazide 12.5 MG Tablet Take 12.5 mg by mouth daily. 09/21/19 16 Active HYDROcodone-acetami nophen (NORCO) 10-325 MG Tablet take 1 tablet by oral route every 6 hours as needed for pain 12/22/19 14 Active potassium chloride SA (KLOR-CON M20) 20 MEQ Tablet Controlled Release take 1 tablet by oral route every day with food 07/12/20 16 Active SUMAtriptan (IMITREX) 100 MG Tablet Take one tabet po q2h prn as soon as feel headache is coming. No more than 2 tablets in 24 hours. 07/08/19 18 Active traZODone (DESYREL) 50 MG Tablet Take 25 mg by mouth nightly. Active morphine (MS CONTIN) 60 MG Tablet Controlled ReleaseIndications: pt taking 60 in the morning and 30mg at night. 0 07/12/19 18 Active lidocaine (LMX) 4 % Cream lidocaine 4 % topical cream apply light layer to affected areas of feet twice daily as needed Active Polyethylene Glycol 3350 (MIRALAX PO) Take 17 g by mouth daily as needed. Active potassium chloride (MICRO-K) 10 MEQ Capsule CR Take 10 mEq by mouth. 1 tablet every other day. Active amitriptyline (ELAVIL) 25 MG Tablet Take 50 mg by mouth nightly. Active Buprenorphine HCl (BELBUCA) 150 MCG FILM Takes 150 mcg film in P.M. and 300mcg film in A.M. 08/23/19 19 Active ipratropium (ATROVENT) 0.06 % Solution ipratropium bromide 42 mcg (0.06 %) nasal spray Active loratadine (CLARITIN) 10 MG Tablet Take 10 mg by mouth daily. Active montelukast (SINGULAIR) 10 MG Tablet Take 10 mg by mouth daily. Active mupirocin calcium (BACTROBAN) 2 % Cream Apply to face as needed. Active Naloxone HCl (NARCAN) 4 MG/0.1ML Liquid Narcan 4 mg/actuation nasal spray Active Tapentadol HCl (NUCYNTA) 50 MG TABLET SR 12 HR Nucynta ER 50 mg tablet,extended release Active topiramate (TOPAMAX) 100 MG Tablet Take 100 mg by mouth 3 times daily. 09/16/19 19 Active naproxen sodium (ALEVE) 220 MG Tablet Take 220 mg by mouth every 6 hours as needed. Active Calcium Carbonate Antacid (TUMS PO) Take 1 Tab by mouth as needed. Active modafinil (PROVIGIL) 200 MG Tablet 06/04/19 20 Active Levocetirizine Dihydrochloride (Xyzal) 5 MG Tablet Take 1 Tab by mouth daily. Active Active Problems Problem Noted Date Diagnosed Date Nasal septal deviation 04/16/2019 Moderate recurrent major depression 04/15/2018 Chronic pain syndrome 04/26/2017 Somatic symptom disorder, pe rsistent, severe, with predominant pain 04/26/2017 Chronic pain syndrome 02/17/2016 Undifferentiated somatoform disorder 02/17/2016 Family History Medical History Relation Name Comments Diabetes Mother Hypertension Mother Other-comment Mother Had lung disea se. Does not know name. Relation Name Status Comments Father Alive Does not know h ealth history. Mother Social History Tobacco Use Types Packs/Day Years Used Date Smoking Tobacco: Never Smokeless Tobacco: Never Tobacco Cessation:Counseling Given: No Alcohol Use Standard Drinks/Week Comments No 0 (1 standard drink = 0.6 oz pur e alcohol) Sexually Active Control Partners Comments Yes Male Comments No Sex and Gender Information Value Date Recorded Sex Assigned at Not on file Legal Sex Female 12:22 AM CDT Gender Identity Not on file Sexual Orientation Not on file Last Filed Vital Signs Vital Sign Reading Time Taken Comments Blood Pressure 130/88 06/08/2019 10:21 AM WEB DEVELOPMENT CONSULTANT Pulse 88 06/08/2019 10:21 AM WEB DEVELOPMENT CONSULTANT Temperature 37.1 C (98.7 F) 06/08/2019 10:21 AM WEB DEVELOPMENT CONSULTANT Respiratory Rate 16 06/08/2019 10:21 AM WEB DEVELOPMENT CONSULTANT Oxygen Saturation 99% 06/08/2019 10:21 AM WEB DEVELOPMENT CONSULTANT Inhaled Oxygen Concentration - - Weight 80.3 kg (177 lb) 06/08/2019 10:21 AM WEB DEVELOPMENT CONSULTANT Height 157.5 cm (5' 2) 06/08/2019 10:21 AM WEB DEVELOPMENT CONSULTANT Body Mass Index 32.37 06/08/2019 10:21 AM WEB DEVELOPMENT CONSULTANT Plan of Treatment Health Maintenance Due Date Last Done Comments Hepatitis C Virus (HCV) Screening 1975 Hepatitis B Immunization (1 of 3 - 19+ 3-dose series) 1996 Pap Smear 1998 Cervical Cancer Screening (CCS) 2007 HPV/Cotest 2007 Cologuard 2022 Colonoscopy 2022 Colorectal Cancer Screening 2022 Immunochemical Fecal Occult Blood 2022 Influenza Immunization (#1) 2025 10/0 05/2021, 05/19/2019, 03/31/2018, Additional history exists SARS-COV-2 Immunization ( season) 2025 02/24/2022, 10/08/2020, 09/17/2020 Respiratory Syncytial Virus (RSV) Immunization (Adult) (1 - 1-dose 75+ series) 2052 DTaP/Tdap/Td Immunization Discontinued 09/21/2015 TdaP Immunization Completed 09/21/2015 Human Papillomavirus (HPV) Immunization Aged Out No longer eligible based on patient's age to complete this topic Meningococcal Immunization (ACWY) Aged Out No longer eligible based on patient's age to complete this topic Pneumococcal Immunization Combined Aged Out No longer eligible based on patient's age to complete this topic Rotavirus Immunization Aged Out No lo nger eligible based on patient's age to complete this topic Insurance MEDICARE [facility] MEDICARE Care Teams Voucher Clerk Relationship Specialty Start Date End Date Kendell, ROCKY Wise, GUSSET MAKER PCP - General Family Medicine 04/10/19 Arsen Colin MD Female Pelvic Medicine & Reconstructive Surgery 04/16/17
[2025-02-15 12:41] VITALS: BP 126/94; PULSE 100; RESP 16; TEMP 36.3; O2SAT 100
[2025-02-15 12:48] LABS: BEDSIDEPREGUCG Negative (Negative)
--- NOTE | 2025-02-15 12:49 | WPDANESEPPF ---
Anes - Initial Pre Proc Eval Procedure: Operation Date: 02/15/25 13:45 Proposed Procedures p Screening Colonoscopy - Ramon Daigle MD Date/Time: 02/15/25 12:49 Surgeon: Ramon Daigle MD Pre Op Diagnosis: Personal history of colon polyps, unspecified Patient Data Age: 49 Gender: F Height: 1.57 m Weight: 73.5 kg Last Vital Signs Temp 97.3 F L 02/15/25 12:41 Pulse 100 02/15/25 12:41 Resp 16 02/15/25 12:41 BP 126/94 H 02/15/25 12:41 Pulse Ox 100 02/15/25 12:41 O2 Del Method Room Air 02/15/25 12:41 Allergies Allergy/AdvReac Type Severity Reaction Status Date / Time benzonatate Allergy Unknown Unknown Verified 02/15/25 12:38 pregabalin Allergy Unknown Unknown Verified 02/15/25 12:38 Home Medications ?Medication ?Instructions ?Recorded ?Confirmed ?Type amitriptyline 25 mg tablet 50 mg PO HS 05/08/20 02/15/25 History buprenorphine HCl 150 mcg buccal 150 mcg buccal HS 05/08/20 02/15/25 History film (Belbuca) buprenorphine HCl 300 mcg buccal 300 mcg buccal DAILY 05/08/20 02/15/25 History film (Belbuca) cholecalciferol (vitamin D3) 2,000 units PO DAILY 05/08/20 02/15/25 History cyclobenzaprine 10 mg tablet 10 mg PO TID PRN Muscle Spasm 05/08/20 02/15/25 History duloxetine 30 mg capsule,delayed 30 mg PO BID 05/08/20 02/15/25 History release gabapentin 300 mg capsule 300 mg PO DAILY 05/08/20 02/02/25 History modafinil 200 mg tablet 200 mg PO DAILY 05/08/20 02/02/25 History topiramate 100 mg tablet 100 mg PO TID 05/08/20 02/02/25 History trazodone 50 mg tablet 25 - 50 mg PO HS 05/08/20 02/02/25 History buspirone 10 mg tablet 10 mg PO DAILY 03/14/21 02/02/25 History famotidine 40 mg tablet 40 mg PO DAILY 03/14/21 02/02/25 History atorvastatin 20 mg tablet 20 mg PO QPM 02/02/25 02/15/25 History diclofenac sodium 75 mg 75 mg PO Q12H 02/02/25 02/02/25 History tablet,delayed release ferrous sulfate 325 mg (65 mg 325 mg PO DAILY 02/02/25 02/02/25 History iron) tablet potassium chloride 10 mEq 10 meq PO DAILY 02/02/25 02/02/25 History tablet,extended release sumatriptan succinate 100 mg tablet 100 mg PO Q2H PRN migraine headache 02/02/25 02/15/25 History Laboratory Tests 02/15/25 12:41 POC Urine HCG, Qual Negative (Negative) Patient hx anesthesia problems: other (Pt states that sometimes post op she is out of it for a while. ) Family hx anesthesia problems: none Results Review: All pre-operative results and documents have been reviewed as part of the pre-operative evaluation. PMFSH Past Medical History Medical History Chronic pain Migraine HTN (hypertension) Family History Family History Other Diabetes mellitus High cholesterol Hypertension Social History Social History Smoking status: Never smoker Alcohol intake: never Substance use type: does not use Living arrangements: with family Spiritual care concerns: No Anes - Eval Final PreProcedure Day of Procedure 02/15/25 12:49 Patient weight: overweight Lungs: normal air movement Airway: Mallampati scale class II and special considerations (R upper incisor is chipped. ) Neurological: alert and oriented Last oral intake: >/= 8 hours ASA classification: II Emergent: no Anesthetic plan: proceed Anesthesia type and monitoring: general GIVS and standard monitoring Results Review: All pre-operative results and documents have been reviewed as part of the pre-operative evaluation. Hyperlipidemia, chr pain limits her physical activity, no cp or sob w walking a short distance. Informed Consent: The patient's anesthetic plan and its attendant risks and benefits were discussed with the patient/family/POA. Questions were solicited and answers provided to the satisfaction of the patient/family/POA.
[2025-02-15] MEDS: LACTATED RINGERS 1,000 ML 150 ML IV CONT (12:55)
--- NOTE | 2025-02-15 13:22 | PM.HPGS ---
History of Present Illness History of Present Illness Consent: Risks, benefits, and alternatives have been discussed and questions answered. Patient agrees to proceed with procedure. Chief complaint: Personal history of colon polyps, unspecified Narrative: Ashleigh Landaverde is a 49 year old female with history of colon polyp Review of Systems Review of Systems: All systems reviewed & are unremarkable except as noted in HPI and below PMFSH Past Medical History Medical History (Updated 02/15/25 @ 13:22 by Ramon Daigle MD) Colon polyp Chronic pain Migraine HTN (hypertension) Family History Family History Other Diabetes mellitus High cholesterol Hypertension Social History Social History Smoking status: Never smoker Alcohol intake: never Substance use type: does not use Living arrangements: with family Spiritual care concerns: No Meds Home Medications and Allergies Home Medications ?Medication ?Instructions ?Recorded ?Confirmed ?Type amitriptyline 25 mg tablet 50 mg PO HS 05/08/20 02/15/25 History buprenorphine HCl 150 mcg buccal 150 mcg buccal HS 05/08/20 02/15/25 History film (Belbuca) buprenorphine HCl 300 mcg buccal 300 mcg buccal DAILY 05/08/20 02/15/25 History film (Belbuca) cholecalciferol (vitamin D3) 2,000 units PO DAILY 05/08/20 02/15/25 History cyclobenzaprine 10 mg tablet 10 mg PO TID PRN Muscle Spasm 05/08/20 02/15/25 History duloxetine 30 mg capsule,delayed 30 mg PO BID 05/08/20 02/15/25 History release gabapentin 300 mg capsule 300 mg PO DAILY 05/08/20 02/15/25 History modafinil 200 mg tablet 200 mg PO DAILY 05/08/20 02/15/25 History topiramate 100 mg tablet 100 mg PO TID 05/08/20 02/15/25 History trazodone 50 mg tablet 25 - 50 mg PO HS 05/08/20 02/15/25 History buspirone 10 mg tablet 10 mg PO DAILY 03/14/21 02/15/25 History famotidine 40 mg tablet 40 mg PO DAILY 03/14/21 02/15/25 History atorvastatin 20 mg tablet 20 mg PO QPM 02/02/25 02/15/25 History diclofenac sodium 75 mg 75 mg PO Q12H 02/02/25 02/15/25 History tablet,delayed release Held on 02/15/25. Instructions: Patient no longer taking ferrous sulfate 325 mg (65 mg 325 mg PO DAILY 02/02/25 02/15/25 History iron) tablet potassium chloride 10 mEq 10 meq PO DAILY 02/02/25 02/15/25 History tablet,extended release sumatriptan succinate 100 mg tablet 100 mg PO Q2H PRN migraine headache 02/02/25 02/15/25 History Allergies Allergy/AdvReac Type Severity Reaction Status Date / Time benzonatate Allergy Unknown Unknown Verified 02/15/25 12:38 pregabalin Allergy Unknown Unknown Verified 02/15/25 12:38 Vital Signs Vital Signs - 24 hr 02/15/25 12:41 Temperature 97.3 F L Pulse Rate 100 Respiratory Rate 16 Blood Pressure 126/94 H Pulse Oximetry 100 Oxygen Delivery Room Air Exam Const: General: comfortable and no acute distress HENMT: Face/Nose/Sinus: Normal nares present Eyes: General: appearance normal, both eyes and all related structures Neck: Neck: no JVD Resp: Auscultation: clear to auscultation bilaterally Cardio: Rate: regular rate Rhythm: regular rhythm GI: Inspection: non-distended GI Palp: Yes Soft to palpation Skin: General skin exam: normal color Neuro: Speech: normal speech Extrem: General: normal to inspection Psych: Mental Status: mental status grossly normal Assessment and Plan Assessment and plan (1) Colon polyp: Code(s): K63.5 - Polyp of colon Status: Acute Assessment and Plan: colonoscopy
[2025-02-15 13:42] VITALS: BP 110/69; PULSE 90; RESP 14; O2SAT 97
[2025-02-15 13:52] VITALS: BP 114/75; PULSE 89; RESP 16; O2SAT 97
[2025-02-15 14:02] VITALS: BP 110/80; PULSE 85; RESP 20; O2SAT 100
== END 2025-02-15 14:15 | disposition home or self-care (01) ==
PROVIDERS: Anesthesiology; PCP Physician Assistant; Referring Provider Internal Medicine Gastroenterology; Visit Provider Internal Medicine Gastroenterology
PROC: 0DJD8ZZ Inspection of Lower Intestinal Tract, Via Natural or Artificial Opening Endoscopic (ICD-10-PCS; CPT 45378; principal; 2025-02-15 13:45)
DX: Z12.11 Encounter for screening for malignant neoplasm of colon (principal); K64.8 Other hemorrhoids; E78.5 Hyperlipidemia, unspecified; I10 Essential (primary) hypertension; G89.29 Other chronic pain; Z86.0100 Personal history of colon polyps, unspecified
CPT/HCPCS: 45378; J2003; J2704; J7120